=== PATIENT | male | born 1970 | race Caucasian/White ===

== ENCOUNTER 2016-04-15 07:46 | Emergency (ER) | payer OTHER ==
--- NOTE | 2016-04-15 10:10 | DIAGNOSTIC IMAGING REPORT ---
PROCEDURE: XR CHEST 2 VIEW INDICATION: PRE-SYNCOPE TECHNIQUE: PA and lateral views. COMPARISON: None. FINDINGS: Lungs are clear. Heart and mediastinum are normal. Thorax is normal. IMPRESSION: 1. Negative chest.
--- NOTE | 2016-04-15 12:07 | ED CLINICAL REPORT ---
Clinical Report - Physicians/Mid Levels [facility] [address] [place] [address] 04/15/2016 7:52 Patient: POOJA TEE Time Seen: 09:24 Apr 15 2016. Arrived- By private vehicle. Historian- patient. CPT: ER phys charges level 4 plus (#[id number]). EKG interpretation (#[id number]). HISTORY OF PRESENT ILLNESS Chief Complaint: Dizziness for several months but worse over the past month. ( patient indicates his had dizziness over the last several months. This occurs primarily when he stands up quickly. He notes over the last month though that was become worse and seems to happen every time he tries to eat. He has intermittent nausea but no pain. Has had no fever sweats chills vomiting or diarrhea. Has no history of diabetes, cardiac illness or pulmonary problems. He is not on any new medications. Does do intermittent recreational drugs. He had no PCP as he states he is homeless.). Modifying factors- worsened by food. Not relieved by anything. 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 No weight loss, headache, visual disturbance, fatigue or muscle aches. No weakness. Similar symptoms previously: None. Recent medical care: Not recently seen/assessed. REVIEW OF SYSTEMS No fever, sore throat, sinus drainage, nasal congestion or difficulty breathing. No chest pain, nausea, vomiting, chills or difficulty with urination. No skin rash, back pain, calf pain, headache or blackouts. No double vision. The patient has had a mild nonproductive cough (exposed to influenza A.). He has had mild abdominal pain. The pain is described as located in the epigastrium. All systems otherwise negative, except as recorded above. PAST HISTORY Heart disease. peptic ulcer disease for 20 years. This supposed to be on medications for life but has not been taking them. No history of lung disease, renal disease, hypertension or diabetes mellitus. SOCIAL HISTORY Heavy tobacco smoker (cigarette)- less than 1 pack per day. Occasional alcohol use. Patient is alcoholic. ADDITIONAL NOTES The nursing notes have been reviewed. PHYSICAL EXAM Vital Signs: 04/15/2016 08:02 BP: 132/75. HR: 91. RR: 12. O2 saturation: 99%. Temp: 97.9 F. Pain level now: 0/10. Appearance: Alert. No acute distress. Eyes: Pupils equal, round and reactive to light. Eyes normal inspection. ENT: Ears normal. Nose normal. Pharynx normal. Neck: Normal inspection. Neck supple. CVS: Normal heart rate and rhythm. Heart sounds normal. Pulses normal. No cardiac murmur. Respiratory: No respiratory distress. Breath sounds normal. Chest nontender. Abdomen: No visible injury. Soft. Mild tenderness in the epigastric area. No guarding. Bowel sounds normal. Back: Normal inspection. Skin: Skin warm. Normal skin color. No rash. Extremities: Extremities exhibit normal ROM. No lower extremity edema. Neuro: Oriented X 3. No motor deficit. No sensory deficit. Reflexes normal. LABS, X-RAYS, AND EKG EKG: Normal EKG. Chest X-ray: Normal Chest X-Ray. Laboratory Tests: UA-Culture if indicated: (MIKO: 04/15/2016 09:45) ( MsgRcvd 04/15/2016 10:18) Final results Test Result Flag Units (Reference) URINE COLOR YELLOW URINE APPEARANCE CLEAR URINE GLUCOSE NEGATIVE (NEGATIVE) URINE BILIRUBIN NEGATIVE (NEGATIVE) URINE KETONE NEGATIVE (NEGATIVE) URINE SPECIFIC GRAVITY 1.015 (1.010-1.030) URINE PH 6.5 (5.0-8.0) URINE PROTEIN 1+ (NEGATIVE) URINE UROBILINOGEN 0.2 EU/dL (0.2-1.0) URINE NITRITE NEGATIVE (NEGATIVE) URINE BLOOD NEGATIVE (NEGATIVE) URINE LEUK ESTERASE NEGATIVE (NEGATIVE) URINE RBC 0-1 rbc/hpf (0-1) URINE WBC 0-1 wbc/hpf (0-1) URINE EPITHELIAL CELLS NONE SEEN EPI/hpf (0-5) URINE BACTERIA NONE SEEN (NONE SEEN) URINE COMMENT CULT NOT INDICATED URINE CULTURES ARE SET-UP BASED ON THE FOLLOWING CRITERIA:POSITIVE NITRITEPOSITIVE LEUKOCYTE ESTERASEGREATER THAN 10 WHITE BLOOD CELLSMODERATE (2+) OR GREATER BACTERIA CBC w Diff: (MIKO: 04/15/2016 09:55) ( [facility] 04/15/2016 10:19) Final results Test Result Flag Units (Reference) WHITE BLOOD COUNT 7.4 K/uL (4.5-11.5) RED BLOOD COUNT 4.54 M/uL (4.50-5.90) HEMOGLOBIN 12.8 L gm/dL (13.5-17.5) HEMATOCRIT 39.3 L % (41.0-53.0) MEAN CELL VOLUME 87 fL (80-100) MEAN CORPUSCULAR HGB 28 pg (26-34) MEAN CORPUSCULAR HGB CONC 33 g/dL (31-37) RED CELL DISTRIBUTION WIDTH 14.2 % (11.6-14.8) PLATELET COUNT 400 K/uL (150-400) NEUTROPHIL % 62.8 % (50-75) LYMPH % 27.0 % (25-40) MONO % 7.4 % (3-14) EOSINOPHIL % 2.1 % (0-4) BASOPHIL % 0.7 % (0-2) Urine Drug Screen: (MIKO: 04/15/2016 09:45) ( MsgRcvd 04/15/2016 10:23) Final results Test Result Flag Units (Reference) AMPHETAMINE/METHAMPHETAMINE NEGATIVE (NEGATIVE) BARBITURATE NEGATIVE (NEGATIVE) BENZODIAZEPINE NEGATIVE (NEGATIVE) CANNABINOID NEGATIVE (NEGATIVE) COCAINE NEGATIVE (NEGATIVE) ECSTASY NEGATIVE (NEGATIVE) METHADONE NEGATIVE (NEGATIVE) OPIATE NEGATIVE (NEGATIVE) The urine drug screen is a qualitative screening test fordrug overdose and abuse. All screen results should beconsidered as presumptive.Drugs screened for are as follows:BenzodiazepinesCocaineAmphetamines/MetamphetaminesTHC (Tetrahydrocannabinol)OpiatesBarbituratesEcstasyMethadonePositive results are unconfirmed. For confirmation, notifythe lab for the specimen to be sent to the reference lab.All confirmations must be performed by a differentmethodology.The ingestion of natural herbal and plant productscontaining Ephedra/Ephedra metabolites can produce in urineone or more substances capable of cross reacting withamphetamine/methamphetamine immunoassays. These testsprovide a preliminary result only. A more specificalternative chemical method must be used to obtain aconfirmed analytical result. CHEM 13 PANEL: (MIKO: 04/15/2016 09:55) ( MsgRcvd 04/15/2016 10:56) Final results Test Result Flag Units (Reference) GLUCOSE 104 mg/dL (70-110) BUN 14 mg/dL (7-18) CREATININE 0.8 mg/dL (0.6-1.3) Estimated GFR >60 mL/min Estimated GFR- >60 mL/min Note: Persistent reduction over 3 months in eGFR<60 mL/min/1.73 m2 defines CKD. Patients with eGFR values>=60 mL/min/1.73 m2 may also have CKD if evidence ofpersistent proteinuria. Additional information may be foundat www.kidney.org. SODIUM 142 mmol/L (136-145) POTASSIUM 4.2 mmol/L (3.5-5.1) CHLORIDE 105 mmol/L (98-107) CARBON DIOXIDE 29 mmol/L (21-32) CALCIUM 8.8 mg/dL (8.5-10.1) TOTAL PROTEIN 6.9 g/dL (6.4-8.2) ALBUMIN 3.4 g/dL (3.3-5.0) BILIRUBIN, TOTAL 0.2 mg/dL (0.0-1.0) ALKALINE PHOSPHATASE 58 U/L (46-116) AST (SGOT) 17 U/L (15-37) ALT (SGPT) 19 U/L (12-78) MAGNESIUM 1.9 mg/dL (1.8-2.4) LIPASE 286 U/L (73-393) AMYLASE 90 U/L (25-115) CPK 151 U/L (24-260) TROPONIN I <0.05 ng/mL (0.00-1.5) TROPONIN REFERENCE RANGE:<0.1 NEGATIVE0.1-1.5 INDETERMINANT>1.5 POSITIVE Rapid Influenza Screen: (MIKO: 04/15/2016 08:08) ( ScgRcvd 04/15/2016 09:09) Final results SPECIMEN DESCRIPTION: LENS COATING TECHNICIAN Test Result Flag Units (Reference) RAPID INFLUENZA SCREEN DATE: 04/15/16 INFLUENZA A: NEGATIVE SCREEN FOR INFLUENZA A INFLUENZA B: NEGATIVE SCREEN FOR INFLUENZA B . PROGRESS AND PROCEDURES Course of Care: Hiral Was able to eat in the ER with no symptoms. No symptoms in ER. patient is not orthostatic. No apparent emergent condition identified today. He may have GI induced symptoms and notes he has a history of peptic ulcer disease in the past. He has not been taking the medications that were prescribed for this problem. He says this is in part due to the fact he does not have a PCP. He will be given [facility] for follow-up and start a trial of GI meds. Patient/family counseled. Disposition: Discharged. Condition: stable. CLINICAL IMPRESSION Chronic Dizziness of unclear etiology Mild gastritis. INSTRUCTIONS Avoid alcohol and NSAIDS. Examples of NSAIDS include aspirin, ibuprofen (Advil) and naproxen (Aleve). Avoid spicy foods. Other diet: caffeine. Do not smoke. No alcohol. Warnings: Further evaluation is necessary. GENERAL WARNINGS: Return or contact your physician immediately if your condition worsens or changes unexpectedly, if not improving as expected, or if other problems arise. Prescription Medications: Carafate 1 g before meals and at bedtime. #40 Prilosec 40 mg daily at bedtime #10. Understanding of the discharge instructions verbalized by patient. Discharge instructions reviewed with and understanding was verbalized by cardiac rehabilitation program director. Follow-up with: [facility], , , [address], , [place], [id number] Follow up in one week. Call for an appointment. (Electronically signed by Sergo Downs MD 04/19/2016 8:33)
--- NOTE | 2016-04-15 12:07 | ED CLINICAL REPORT ---
Clinical Report - Physicians/Mid Levels [facility] [address] [place] [address] 04/15/2016 7:52 Patient: POOJA TEE Time Seen: 09:24 Apr 15 2016. Arrived- By private vehicle. Historian- patient. CPT: ER phys charges level 4 plus (#[id number]). EKG interpretation (#[id number]). HISTORY OF PRESENT ILLNESS Chief Complaint: Dizziness for several months but worse over the past month. ( patient indicates his had dizziness over the last several months. This occurs primarily when he stands up quickly. He notes over the last month though that was become worse and seems to happen every time he tries to eat. He has intermittent nausea but no pain. Has had no fever sweats chills vomiting or diarrhea. Has no history of diabetes, cardiac illness or pulmonary problems. He is not on any new medications. Does do intermittent recreational drugs. He had no PCP as he states he is homeless.). Modifying factors- worsened by food. Not relieved by anything. 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 No weight loss, headache, visual disturbance, fatigue or muscle aches. No weakness. Similar symptoms previously: None. Recent medical care: Not recently seen/assessed. REVIEW OF SYSTEMS No fever, sore throat, sinus drainage, nasal congestion or difficulty breathing. No chest pain, nausea, vomiting, chills or difficulty with urination. No skin rash, back pain, calf pain, headache or blackouts. No double vision. The patient has had a mild nonproductive cough (exposed to influenza A.). He has had mild abdominal pain. The pain is described as located in the epigastrium. All systems otherwise negative, except as recorded above. PAST HISTORY Heart disease. peptic ulcer disease for 20 years. This supposed to be on medications for life but has not been taking them. No history of lung disease, renal disease, hypertension or diabetes mellitus. SOCIAL HISTORY Heavy tobacco smoker (cigarette)- less than 1 pack per day. Occasional alcohol use. Patient is alcoholic. ADDITIONAL NOTES The nursing notes have been reviewed. PHYSICAL EXAM Vital Signs: 04/15/2016 08:02 BP: 132/75. HR: 91. RR: 12. O2 saturation: 99%. Temp: 97.9 F. Pain level now: 0/10. Appearance: Alert. No acute distress. Eyes: Pupils equal, round and reactive to light. Eyes normal inspection. ENT: Ears normal. Nose normal. Pharynx normal. Neck: Normal inspection. Neck supple. CVS: Normal heart rate and rhythm. Heart sounds normal. Pulses normal. No cardiac murmur. Respiratory: No respiratory distress. Breath sounds normal. Chest nontender. Abdomen: No visible injury. Soft. Mild tenderness in the epigastric area. No guarding. Bowel sounds normal. Back: Normal inspection. Skin: Skin warm. Normal skin color. No rash. Extremities: Extremities exhibit normal ROM. No lower extremity edema. Neuro: Oriented X 3. No motor deficit. No sensory deficit. Reflexes normal. LABS, X-RAYS, AND EKG EKG: Normal EKG. Chest X-ray: Normal Chest X-Ray. Laboratory Tests: UA-Culture if indicated: (MIKO: 04/15/2016 09:45) ( MsgRcvd 04/15/2016 10:18) Final results Test Result Flag Units (Reference) URINE COLOR YELLOW URINE APPEARANCE CLEAR URINE GLUCOSE NEGATIVE (NEGATIVE) URINE BILIRUBIN NEGATIVE (NEGATIVE) URINE KETONE NEGATIVE (NEGATIVE) URINE SPECIFIC GRAVITY 1.015 (1.010-1.030) URINE PH 6.5 (5.0-8.0) URINE PROTEIN 1+ (NEGATIVE) URINE UROBILINOGEN 0.2 EU/dL (0.2-1.0) URINE NITRITE NEGATIVE (NEGATIVE) URINE BLOOD NEGATIVE (NEGATIVE) URINE LEUK ESTERASE NEGATIVE (NEGATIVE) URINE RBC 0-1 rbc/hpf (0-1) URINE WBC 0-1 wbc/hpf (0-1) URINE EPITHELIAL CELLS NONE SEEN EPI/hpf (0-5) URINE BACTERIA NONE SEEN (NONE SEEN) URINE COMMENT CULT NOT INDICATED URINE CULTURES ARE SET-UP BASED ON THE FOLLOWING CRITERIA:POSITIVE NITRITEPOSITIVE LEUKOCYTE ESTERASEGREATER THAN 10 WHITE BLOOD CELLSMODERATE (2+) OR GREATER BACTERIA CBC w Diff: (MIKO: 04/15/2016 09:55) ( [facility] 04/15/2016 10:19) Final results Test Result Flag Units (Reference) WHITE BLOOD COUNT 7.4 K/uL (4.5-11.5) RED BLOOD COUNT 4.54 M/uL (4.50-5.90) HEMOGLOBIN 12.8 L gm/dL (13.5-17.5) HEMATOCRIT 39.3 L % (41.0-53.0) MEAN CELL VOLUME 87 fL (80-100) MEAN CORPUSCULAR HGB 28 pg (26-34) MEAN CORPUSCULAR HGB CONC 33 g/dL (31-37) RED CELL DISTRIBUTION WIDTH 14.2 % (11.6-14.8) PLATELET COUNT 400 K/uL (150-400) NEUTROPHIL % 62.8 % (50-75) LYMPH % 27.0 % (25-40) MONO % 7.4 % (3-14) EOSINOPHIL % 2.1 % (0-4) BASOPHIL % 0.7 % (0-2) Urine Drug Screen: (MIKO: 04/15/2016 09:45) ( MsgRcvd 04/15/2016 10:23) Final results Test Result Flag Units (Reference) AMPHETAMINE/METHAMPHETAMINE NEGATIVE (NEGATIVE) BARBITURATE NEGATIVE (NEGATIVE) BENZODIAZEPINE NEGATIVE (NEGATIVE) CANNABINOID NEGATIVE (NEGATIVE) COCAINE NEGATIVE (NEGATIVE) ECSTASY NEGATIVE (NEGATIVE) METHADONE NEGATIVE (NEGATIVE) OPIATE NEGATIVE (NEGATIVE) The urine drug screen is a qualitative screening test fordrug overdose and abuse. All screen results should beconsidered as presumptive.Drugs screened for are as follows:BenzodiazepinesCocaineAmphetamines/MetamphetaminesTHC (Tetrahydrocannabinol)OpiatesBarbituratesEcstasyMethadonePositive results are unconfirmed. For confirmation, notifythe lab for the specimen to be sent to the reference lab.All confirmations must be performed by a differentmethodology.The ingestion of natural herbal and plant productscontaining Ephedra/Ephedra metabolites can produce in urineone or more substances capable of cross reacting withamphetamine/methamphetamine immunoassays. These testsprovide a preliminary result only. A more specificalternative chemical method must be used to obtain aconfirmed analytical result. CHEM 13 PANEL: (MIKO: 04/15/2016 09:55) ( MsgRcvd 04/15/2016 10:56) Final results Test Result Flag Units (Reference) GLUCOSE 104 mg/dL (70-110) BUN 14 mg/dL (7-18) CREATININE 0.8 mg/dL (0.6-1.3) Estimated GFR >60 mL/min Estimated GFR- >60 mL/min Note: Persistent reduction over 3 months in eGFR<60 mL/min/1.73 m2 defines CKD. Patients with eGFR values>=60 mL/min/1.73 m2 may also have CKD if evidence ofpersistent proteinuria. Additional information may be foundat www.kidney.org. SODIUM 142 mmol/L (136-145) POTASSIUM 4.2 mmol/L (3.5-5.1) CHLORIDE 105 mmol/L (98-107) CARBON DIOXIDE 29 mmol/L (21-32) CALCIUM 8.8 mg/dL (8.5-10.1) TOTAL PROTEIN 6.9 g/dL (6.4-8.2) ALBUMIN 3.4 g/dL (3.3-5.0) BILIRUBIN, TOTAL 0.2 mg/dL (0.0-1.0) ALKALINE PHOSPHATASE 58 U/L (46-116) AST (SGOT) 17 U/L (15-37) ALT (SGPT) 19 U/L (12-78) MAGNESIUM 1.9 mg/dL (1.8-2.4) LIPASE 286 U/L (73-393) AMYLASE 90 U/L (25-115) CPK 151 U/L (24-260) TROPONIN I <0.05 ng/mL (0.00-1.5) TROPONIN REFERENCE RANGE:<0.1 NEGATIVE0.1-1.5 INDETERMINANT>1.5 POSITIVE Rapid Influenza Screen: (MIKO: 04/15/2016 08:08) ( MdgRcvd 04/15/2016 09:09) Final results SPECIMEN DESCRIPTION: HELP DESK ASSOCIATE Test Result Flag Units (Reference) RAPID INFLUENZA SCREEN DATE: 04/15/16 INFLUENZA A: NEGATIVE SCREEN FOR INFLUENZA A INFLUENZA B: NEGATIVE SCREEN FOR INFLUENZA B . PROGRESS AND PROCEDURES Course of Care: Hiral Was able to eat in the ER with no symptoms. No symptoms in ER. patient is not orthostatic. No apparent emergent condition identified today. He may have GI induced symptoms and notes he has a history of peptic ulcer disease in the past. He has not been taking the medications that were prescribed for this problem. He says this is in part due to the fact he does not have a PCP. He will be given [facility] for follow-up and start a trial of GI meds. Patient/family counseled. Disposition: Discharged. Condition: stable. CLINICAL IMPRESSION Chronic Dizziness of unclear etiology Mild gastritis. INSTRUCTIONS Avoid alcohol and NSAIDS. Examples of NSAIDS include aspirin, ibuprofen (Advil) and naproxen (Aleve). Avoid spicy foods. Other diet: caffeine. Do not smoke. No alcohol. Warnings: Further evaluation is necessary. GENERAL WARNINGS: Return or contact your physician immediately if your condition worsens or changes unexpectedly, if not improving as expected, or if other problems arise. Prescription Medications: Carafate 1 g before meals and at bedtime. #40 Prilosec 40 mg daily at bedtime #10. Understanding of the discharge instructions verbalized by patient. Discharge instructions reviewed with and understanding was verbalized by client success director. Follow-up with: [facility], , , [address], , [place], [id number] Follow up in one week. Call for an appointment. (Electronically signed by Sergo Downs MD 04/19/2016 8:33)
--- NOTE | 2016-04-15 12:08 | ED NURSING NOTES ---
Clinical Report - Nurses [facility] [address] [place] [address] 04/15/2016 7:52 Patient: POOJA TEE TRIAGE Triage time 08:02. Acuity: LEVEL 4. Chief Complaint: FATIGUE. 08:02 04/15/16. 08:02 04/15/16. --08:08 Edvin Geronimo R.N. 08:02 04/15/16. BP: 132/75. HR: 91. RR: 12. O2 saturation: 99% on room air. Temp: 97.9 F (oral). Pain level now: 0/10. --08:08 Edvin Geronimo R.N. Acuity: LEVEL 3. --10:33 Edvin Geronimo R.N. Weight: 72.5 kg stated. Height/Length: 67 inches Per Patient. BMI: 25.1. --08:03 Edvin Geronimo R.N. Medications None. --08:02 Edvin Geronimo R.N. Medication/allergy information source: the patient. --08:08 Edvin Geronimo R.N. Allergies Tylenol.(rash) --08:03 Edvin Geronimo R.N. PCN.(rash) --08:03 Edvin Geronimo R.N. History Arrived by private vehicle. Historian: patient. Accompanied by friend. 08:02 04/15/16. Onset. ("a couple months"). Treatment MOBILE HOME SET UP PERSON: None. SOCIAL HX: Current every day light tobacco smoker (cigarette)- less than 1/2 a pack per day. Occasional alcohol use; consumes beer. History of drug use: methamphetamines, marijuana. (5 days ago). He has not traveled outside the [place] The patient was exposed to influenza. Mask placed on patient. ABUSE ASSESSMENT: No report of abuse. FALL RISK ASSESSMENT: Fall risk assessment completed. No fall risk identified. NUTRITIONAL RISK ASSESSMENT: The nutritional risk assessment revealed no deficiencies. FUNCTIONAL ASSESSMENT: Functional assessment: no impairments noted. LEARNING NEEDS ASSESSMENT: The learning needs assessment revealed no barriers. SKIN INTEGRITY ASSESSMENT: Skin integrity risk assessment completed. No skin integrity risk identified. --08:08 Edvin Geronimo R.N. PAST MEDICAL HX: Immunization status is known. --08:08 Edvin Geronimo R.N. PROBLEMS: Bipolar Disorder. --08:04 Edvin Geronimo R.N. Depression. Anxiety Reaction. --08:04 Edvin Geronimo R.N. ADDITIONAL SURGERIES: Left Leg. Right Arm . --08:04 Edvin Geronimo R.N. Assessment 08:02 04/15/16. --08:08 Edvin Geronimo R.N. Interventions 08:02 04/15/16. 08:02 04/15/16. ID and allergy band on patient. To treatment room. --08:08 Edvin Geronimo R.N. PHYSICAL ASSESSMENT 08:06 04/15/16. Ambulatory to room. GENERAL / NEURO / PSYCH: Alert. Oriented X 4. RESPIRATORY: Respirations not labored. CVS: Capillary refill less than 2 seconds. SKIN: Skin is warm and dry. --08:06 Edvin Geronimo R.N. NURSING PROGRESS NOTES 08:06 04/15/16. The plan of care for this patient has been created. Patient gowned. Head of bed elevated. Two patient identifiers checked. Call light placed in reach. Side rails up x 2. Bed placed in lowest position. Brakes of bed on. Brakes of chair on. --08:06 Edvin Geronimo R.N. 08:06 04/15/16. Patient ready for evaluation- chart flagged and notification provided. --08:06 Edvin Geronimo R.N. 08:11 04/15/16. ( Flu swab sent to lab, nasal). --08:11 Edvin Geronimo R.N. 09:10 04/15/16. Patient and family informed about reason for wait and about plan of care. --09:10 Edvin Geronimo R.N. 09:12 04/15/16. --09:12 Edvin Geronimo R.N. 09:11 04/15/16. BP: 128/72. HR: 82. RR: 12. O2 saturation: 99% on room air. --09:12 Edvin Geronimo R.N. 09:54 04/15/2016 Site #1 started via IV in the left antecubital space with an 20g angiocath, with aseptic technique and good blood return; one attempt. Blood drawn: rainbow set. Labeled in the presence of the patient and sent to the lab. Saline lock flushed with 10 mL saline. --09:54 Edvin Geronimo R.N. 09:55 04/15/16. EKG time: (0955 AM). EKG was ordered, performed by a nurse and shown to the ED physician. --09:55 Edvin Geronimo R.N. 09:55 04/15/16. --09:55 Edvin Geroniom R.N. 09:55 04/15/16. BP: 123/71 taken while lying. HR: 90. RR: 12. O2 saturation: 100% on room air. --09:55 Edvin Geronimo R.N. 09:56 04/15/16. Cardiac rhythm: normal sinus rhythm. --09:56 Edvin Geronimo R.N. 09:55 04/15/16. BP: 119/70 taken while sitting. HR: 92. RR: 14. O2 saturation: 100% on room air. --09:56 Edvin Geronimo R.N. 09:56 04/15/16. Cardiac rhythm: normal sinus rhythm. --09:56 Edvin Gernoimo R.N. 09:56 04/15/16. BP: 120/79. HR: 93. RR: 14. O2 saturation: 100% on room air. --09:56 Edvin Geronimo R.N. 09:56 04/15/16. lunchroom monitor, pulse oximeter and NIBP monitor placed on patient; monitor alarms on. --09:56 Edvin Geronimo R.N. 09:56 04/15/16. Cardiac rhythm: normal sinus rhythm. --09:56 Edvin Geronimo R.N. 09:57 04/15/16. Patient ID band checked for patient name and birthdate: patient confirmed. Clean catch urine collected with return of yellow-colored urine; sample sent to lab for urinalysis and drug screen. Specimen labeled in the presence of the patient. --09:57 Edvin Geronimo R.N. 10:33 04/15/16. Cardiac rhythm: normal sinus rhythm. --10:33 Edvin Geronimo R.N. 10:33 04/15/16. BP: 124/74. HR: 90. RR: 16. O2 saturation: 99% on room air. --10:33 Edvin Geronimo R.N. 12:00 04/15/16. Cardiac rhythm: normal sinus rhythm. --12:00 Edvin Geronimo R.N. 11:59 04/15/16. BP: 119/63. HR: 91. RR: 14. O2 saturation: 100% on room air. --12:00 Edvin Geronimo R.N. DISPOSITION / DISCHARGE 12:03 04/15/2016 Site #1 removed upon discharge. Catheter intact. --12:13 Edvin Geronimo R.N. 12:14 04/15/16. Cardiac rhythm: normal sinus rhythm. Condition at departure: improved. The goals identified in the patient's plan of care were met. No learning barriers present. Discharge instructions provided and reviewed with the patient. Reviewed warnings. Reviewed medication(s). Treatments reviewed. Patient verbalized understanding. Written instructions provided in [place]. The patient was discharged by the physician. He was discharged home and accompanied by family. He left the Emergency Department ambulatory and via private vehicle. Family member driving. FALL RISK ASSESSMENT: Fall risk assessment completed. No fall risk identified. --12:14 Edvin Geronimo R.N. 12:13 04/15/16. BP: 114/72. HR: 88. RR: 12. O2 saturation: 99% on room air. Temp: 98.2 F (oral). --12:14 Edvin Geronimo R.N. 12:14 04/15/16. Departure time: 12:14. --12:14 Edvin Geronimo R.N. Locked/Released at 04/15/2016 12:16 by Edvin Geronimo R.N.
--- NOTE | 2016-04-15 12:08 | ED ORDER SUMMARY ---
..... Patient: POOJA TEE OrderSheet [facility] VisitID: [id number] [place] [address] 45y, M Registration Date/Time: 04/15/2016 ORDER SHEET Weight: 72.5 kg (stated) Allergies: Tylenol, PCN GENERAL ORDERS: Rapid Influenza Screen (Nasal Pharyngeal) (NOTE KEEPER) Urgent (08:07 04/15/2016 Callum FLORES) (8:11 JBoardley R.N.) Chest 2V Urgent (09:04/15/2016 Alia FLORES) (9:57 JBoardley R.N.) Criminology Professor (Continuous) (:04/15/2016 Alia FLORES) (9:54 JBoardley R.N.) - (Orthostatic BP/P) (09:39 04/15/2016 Alia FLORES) (9:54 JBoardley R.N.) UA-Culture if indicated Urgent (09:39 04/15/2016 Alia FLORES) (9:54 JBoardley R.N.) Cardiac Panel Stat (09:04/15/2016 Alia FLORES) (9:54 JBoardley R.N.) Amylase Urgent (09:39 04/15/2016 Alia FLORES) (9:54 JBoardley R.N.) Lipase Urgent (09:04/15/2016 Alia FLORES) (9:54 JBoardley R.N.) Urine Drug Screen Urgent (09:39 04/15/2016 Alia FLORES) (9:54 JBwillarddleradha R.N.) EKG - ER Stat (09:04/15/2016 Alia FLORES) (9:54 JBoarnicolas R.N.) Pulse oximeter (09:04/15/2016 Alia FLORES) (9:54 JBoardleradha R.N.) MEDICATION ORDERS: IV FLUIDS: IV Saline Lock (09:04/15/2016 Alia FLORES) (Ack 9:40 JBoardley R.N.) (9:55 JBoardley R.N.) ORDER SHEET NOTES: [Electronically signed by Edvin Geronimo R.N. (12:16 04/15/2016)] [Electronically signed by Sergo Downs MD (08:33 04/19/2016)] [Electronically locked/signed by Edvin Geronimo R.N. (12:16 04/15/2016)]
--- NOTE | 2016-04-15 12:08 | ED NURSING NOTES ---
Clinical Report - Nurses [facility] [address] [place] [address] 04/15/2016 7:52 Patient: POOJA TEE TRIAGE Triage time 08:02. Acuity: LEVEL 4. Chief Complaint: FATIGUE. 08:02 04/15/16. 08:02 04/15/16. --08:08 Edvin Geronimo R.N. 08:02 04/15/16. BP: 132/75. HR: 91. RR: 12. O2 saturation: 99% on room air. Temp: 97.9 F (oral). Pain level now: 0/10. --08:08 Edvin Geronimo R.N. Acuity: LEVEL 3. --10:33 Edvin Geronimo R.N. Weight: 72.5 kg stated. Height/Length: 67 inches Per Patient. BMI: 25.1. --08:03 Edvin Geronimo R.N. Medications None. --08:02 Edvin Geronimo R.N. Medication/allergy information source: the patient. --08:08 Edvin Geronimo R.N. Allergies Tylenol.(rash) --08:03 Edvin Geronimo R.N. PCN.(rash) --08:03 Edvin Geronimo R.N. History Arrived by private vehicle. Historian: patient. Accompanied by friend. 08:02 04/15/16. Onset. ("a couple months"). Treatment TECHNOLOGY SOLUTIONS ARCHITECT: None. SOCIAL HX: Current every day light tobacco smoker (cigarette)- less than 1/2 a pack per day. Occasional alcohol use; consumes beer. History of drug use: methamphetamines, marijuana. (5 days ago). He has not traveled outside the [place] The patient was exposed to influenza. Mask placed on patient. ABUSE ASSESSMENT: No report of abuse. FALL RISK ASSESSMENT: Fall risk assessment completed. No fall risk identified. NUTRITIONAL RISK ASSESSMENT: The nutritional risk assessment revealed no deficiencies. FUNCTIONAL ASSESSMENT: Functional assessment: no impairments noted. LEARNING NEEDS ASSESSMENT: The learning needs assessment revealed no barriers. SKIN INTEGRITY ASSESSMENT: Skin integrity risk assessment completed. No skin integrity risk identified. --08:08 Edvin Geronimo R.N. PAST MEDICAL HX: Immunization status is known. --08:08 Edvin Geronimo R.N. PROBLEMS: Bipolar Disorder. --08:04 Edvin Geronimo R.N. Depression. Anxiety Reaction. --08:04 Edvin Geronimo R.N. ADDITIONAL SURGERIES: Left Leg. Right Arm . --08:04 Edvin Geronimo R.N. Assessment 08:02 04/15/16. --08:08 Edvin Geronimo R.N. Interventions 08:02 04/15/16. 08:02 04/15/16. ID and allergy band on patient. To treatment room. --08:08 Edvin Geronimo R.N. PHYSICAL ASSESSMENT 08:06 04/15/16. Ambulatory to room. GENERAL / NEURO / PSYCH: Alert. Oriented X 4. RESPIRATORY: Respirations not labored. CVS: Capillary refill less than 2 seconds. SKIN: Skin is warm and dry. --08:06 Edvin Geronimo R.N. NURSING PROGRESS NOTES 08:06 04/15/16. The plan of care for this patient has been created. Patient gowned. Head of bed elevated. Two patient identifiers checked. Call light placed in reach. Side rails up x 2. Bed placed in lowest position. Brakes of bed on. Brakes of chair on. --08:06 Edvin Geronimo R.N. 08:06 04/15/16. Patient ready for evaluation- chart flagged and notification provided. --08:06 Edvin Geronimo R.N. 08:11 04/15/16. ( Flu swab sent to lab, nasal). --08:11 Edvin Geronimo R.N. 09:10 04/15/16. Patient and family informed about reason for wait and about plan of care. --09:10 Edvin Geronimo R.N. 09:12 04/15/16. --09:12 Edvin Geronimo R.N. 09:11 04/15/16. BP: 128/72. HR: 82. RR: 12. O2 saturation: 99% on room air. --09:12 Edvin Geronimo R.N. 09:54 04/15/2016 Site #1 started via IV in the left antecubital space with an 20g angiocath, with aseptic technique and good blood return; one attempt. Blood drawn: rainbow set. Labeled in the presence of the patient and sent to the lab. Saline lock flushed with 10 mL saline. --09:54 Edvin Geronimo R.N. 09:55 04/15/16. EKG time: (0955 AM). EKG was ordered, performed by a nurse and shown to the ED physician. --09:55 Edvin Geronimo R.N. 09:55 04/15/16. --09:55 Edvin Geronimo R.N. 09:55 04/15/16. BP: 123/71 taken while lying. HR: 90. RR: 12. O2 saturation: 100% on room air. --09:55 Edvin Geronimo R.N. 09:56 04/15/16. Cardiac rhythm: normal sinus rhythm. --09:56 Edvin Geronimo R.N. 09:55 04/15/16. BP: 119/70 taken while sitting. HR: 92. RR: 14. O2 saturation: 100% on room air. --09:56 Edvin Geronimo R.N. 09:56 04/15/16. Cardiac rhythm: normal sinus rhythm. --09:56 Edvin Geronimo R.N. 09:56 04/15/16. BP: 120/79. HR: 93. RR: 14. O2 saturation: 100% on room air. --09:56 Edvin Geronimo R.N. 09:56 04/15/16. telemetry monitor, pulse oximeter and NIBP monitor placed on patient; monitor alarms on. --09:56 Edvin Geronimo R.N. 09:56 04/15/16. Cardiac rhythm: normal sinus rhythm. --09:56 Edvin Geronimo R.N. 09:57 04/15/16. Patient ID band checked for patient name and birthdate: patient confirmed. Clean catch urine collected with return of yellow-colored urine; sample sent to lab for urinalysis and drug screen. Specimen labeled in the presence of the patient. --09:57 Edvin Geronimo R.N. 10:33 04/15/16. Cardiac rhythm: normal sinus rhythm. --10:33 Edvin Geronimo R.N. 10:33 04/15/16. BP: 124/74. HR: 90. RR: 16. O2 saturation: 99% on room air. --10:33 Edvin Geronimo R.N. 12:00 04/15/16. Cardiac rhythm: normal sinus rhythm. --12:00 Edvin Geronimo R.N. 11:59 04/15/16. BP: 119/63. HR: 91. RR: 14. O2 saturation: 100% on room air. --12:00 Edvin Geronimo R.N. DISPOSITION / DISCHARGE 12:03 04/15/2016 Site #1 removed upon discharge. Catheter intact. --12:13 Edvin Geronimo R.N. 12:14 04/15/16. Cardiac rhythm: normal sinus rhythm. Condition at departure: improved. The goals identified in the patient's plan of care were met. No learning barriers present. Discharge instructions provided and reviewed with the patient. Reviewed warnings. Reviewed medication(s). Treatments reviewed. Patient verbalized understanding. Written instructions provided in Fijian. The patient was discharged by the physician. He was discharged home and accompanied by family. He left the Emergency Department ambulatory and via private vehicle. Family member driving. FALL RISK ASSESSMENT: Fall risk assessment completed. No fall risk identified. --12:14 Edvin Geronimo R.N. 12:13 04/15/16. BP: 114/72. HR: 88. RR: 12. O2 saturation: 99% on room air. Temp: 98.2 F (oral). --12:14 Edvin Geronimo R.N. 12:14 04/15/16. Departure time: 12:14. --12:14 Edvin Geronimo R.N. Locked/Released at 04/15/2016 12:16 by Edvin Geronimo R.N.
--- NOTE | 2016-04-15 12:08 | ED ORDER SUMMARY ---
..... Patient: POOJA TEE OrderSheet [facility] VisitID: [id number] [place] [address] 45y, M Registration Date/Time: 04/15/2016 ORDER SHEET Weight: 72.5 kg (stated) Allergies: Tylenol, PCN GENERAL ORDERS: Rapid Influenza Screen (Nasal Pharyngeal) (BID CLERK) Urgent (08:07 04/15/2016 Callum FLORES) (8:11 JBoardley R.N.) Chest 2V Urgent (09:04/15/2016 Alia FLORES) (9:57 JBoardley R.N.) Station Mechanic (Continuous) (:04/15/2016 Alia FLORES) (9:54 JBoardley R.N.) - (Orthostatic BP/P) (09:39 04/15/2016 Alia FLORES) (9:54 JBoardley R.N.) UA-Culture if indicated Urgent (09:39 04/15/2016 Alia FLORES) (9:54 JBoardley R.N.) Cardiac Panel Stat (09:04/15/2016 Alia FLORES) (9:54 JBoardley R.N.) Amylase Urgent (09:39 04/15/2016 Alia FLORES) (9:54 JBoardley R.N.) Lipase Urgent (09:04/15/2016 Alia FLORES) (9:54 JBoardley R.N.) Urine Drug Screen Urgent (09:39 04/15/2016 Alia FLORES) (9:54 JBwillarddleradha R.N.) EKG - ER Stat (09:04/15/2016 Alia FLORES) (9:54 JBoarnicolas R.N.) Pulse oximeter (09:04/15/2016 Alia FLORES) (9:54 JBoardleradha R.N.) MEDICATION ORDERS: IV FLUIDS: IV Saline Lock (09:04/15/2016 Alia FLORES) (Ack 9:40 JBoardley R.N.) (9:55 JBoardley R.N.) ORDER SHEET NOTES: [Electronically signed by Edvin Geronimo R.N. (12:16 04/15/2016)] [Electronically signed by Sergo Downs MD (08:33 04/19/2016)] [Electronically locked/signed by Edvin Geronimo R.N. (12:16 04/15/2016)]
--- NOTE | 2016-04-19 08:33 | ED MAR SUMMARY ---
..... Medication Administration Record [facility] [address] [place] [id number] Patient: POOJA TEE Visit ID: [id number] 45y, M Weight: 72.5 kg Height/Length: 67 in BMI: 25.1 ALLERGIES: PCN, Tylenol
--- NOTE | 2016-04-19 08:33 | ED MED RECONCILIATION SUMMARY ---
Patient: POOJA TEE Medication Reconciliation Report [facility] VisitID: [id number] [address] [place] [address] 45y, M Registration Date/Time: 04/15/2016 Weight: 72.5 kg Height/Length: 67 in. BMI: 25.1 ALLERGIES: PCN, Tylenol The patient's Home Medications are listed below: NONE. The source(s) of the original Home Medication information: patient The following Medications were given to the patient in the Emergency Department: None. The following Medications were prescribed to the patient: Carafate 1 g before meals and at bedtime. #40Prilosec 40 mg daily at bedtime #10. -- Sergo Downs MD
--- NOTE | 2016-04-19 08:33 | ED DISCHARGE INSTRUCTIONS ---
Patient: POOJA TEE General Instructions [facility] VisitID: [id number] [address] [place] [address] 45y, M Registration Date/Time: 04/15/2016 Chronic Dizziness of unclear etiology Mild gastritis. INSTRUCTIONS Avoid alcohol and NSAIDS. Examples of NSAIDS include aspirin, ibuprofen (Advil) and naproxen (Aleve). Avoid spicy foods. Other diet: caffeine. Do not smoke. No alcohol. Warnings: Further evaluation is necessary. GENERAL WARNINGS: Return or contact your physician immediately if your condition worsens or changes unexpectedly, if not improving as expected, or if other problems arise. Prescription Medications: Carafate 1 g before meals and at bedtime. #40 Prilosec 40 mg daily at bedtime #10. Understanding of the discharge instructions verbalized by patient. Discharge instructions reviewed with and understanding was verbalized by skid road man. Follow-up with: [facility], , , [address], , [place], [id number] Follow up in one week. Call for an appointment. ADDITIONAL INFORMATION [place] Diet A bland diet is used for patients with an upset stomach. It consists of foods that are mild and easy to digest. It is better to eat small frequent meals rather than three large meals a day. BEVERAGES OK: Fruit juices, non-caffeinated teas and coffee, non-carbonated grayson AVOID: Carbonated beverage, caffeinated tea and coffee, all alcoholic beverages BREAD OK: Refined white, wheat or rye bread, thalia or soda crackers, Krystal toast, plain rolls, bagels AVOID: Whole-grain bread CEREAL OK: Refined cereals: cooked or ready to eat AVOID: Whole grain cereals and granola, or those containing bran, seeds or nuts DESSERTS OK: Peanut butter and all others except those to "avoid" AVOID: Chocolate, cocoa, coconut, popcorn, nuts, seeds, jam, marmalade FRUITS OK: Canned, cooked, frozen or fresh fruits without seeds or tough skin AVOID: Olives, skin and seeds of fruit MEATS OK: All fresh or preserved meat, fish and fowl AVOID: Any that are prepared with those spices to "avoid" CHEESE & EGGS OK: Eggs, cottage cheese, cream cheese, other cheeses AVOID: All cheeses made with those spices to "avoid" POTATOES & PASTA OK: Potato, rice, macaroni, noodles, spaghetti AVOID: None SOUPS OK: All soups without heavy seasoning AVOID: Soups made with those spices to "avoid" VEGETABLES OK: Canned, cooked, fresh or frozen mildly flavored vegetables without seeds, skins or coarse fiber AVOID: Vegetables prepared with those spices to "avoid"; skin and seeds of vegetables and those with coarse fiber SPICES OK: Salt, lemon and ewiiaapaayp juice, vinegar, all extracts, ana m, cinnamon, thyme, mace, allspice, paprika AVOID: [place] powder, cloves, pepper, seed spices, garlic, gravy pickles, highly seasoned salad dressings You have been given the following additional information: Liborio Gonzalez (Adult) (Electronically signed by Sergo Downs MD 04/19/2016 8:33)
--- NOTE | 2016-04-19 08:33 | ED MAR SUMMARY ---
..... Medication Administration Record [facility] [address] [place], [place] [id number] Patient: POOJA TEE Visit ID: [id number] 45y, M Weight: 72.5 kg Height/Length: 67 in BMI: 25.1 ALLERGIES: PCN, Tylenol
--- NOTE | 2016-04-19 08:33 | ED MED RECONCILIATION SUMMARY ---
Patient: POOJA TEE Medication Reconciliation Report [facility] VisitID: [id number] [address] [place] [address] 45y, M Registration Date/Time: 04/15/2016 Weight: 72.5 kg Height/Length: 67 in. BMI: 25.1 ALLERGIES: PCN, Tylenol The patient's Home Medications are listed below: NONE. The source(s) of the original Home Medication information: patient The following Medications were given to the patient in the Emergency Department: None. The following Medications were prescribed to the patient: Carafate 1 g before meals and at bedtime. #40Prilosec 40 mg daily at bedtime #10. -- Sergo Downs MD
--- NOTE | 2016-04-19 08:33 | ED DISCHARGE INSTRUCTIONS ---
Patient: POOJA TEE General Instructions [facility] VisitID: [id number] [address] [place] [address] 45y, M Registration Date/Time: 04/15/2016 Chronic Dizziness of unclear etiology Mild gastritis. INSTRUCTIONS Avoid alcohol and NSAIDS. Examples of NSAIDS include aspirin, ibuprofen (Advil) and naproxen (Aleve). Avoid spicy foods. Other diet: caffeine. Do not smoke. No alcohol. Warnings: Further evaluation is necessary. GENERAL WARNINGS: Return or contact your physician immediately if your condition worsens or changes unexpectedly, if not improving as expected, or if other problems arise. Prescription Medications: Carafate 1 g before meals and at bedtime. #40 Prilosec 40 mg daily at bedtime #10. Understanding of the discharge instructions verbalized by patient. Discharge instructions reviewed with and understanding was verbalized by skid man. Follow-up with: [facility], , , [address], , [place], [id number] Follow up in one week. Call for an appointment. ADDITIONAL INFORMATION [place] Diet A bland diet is used for patients with an upset stomach. It consists of foods that are mild and easy to digest. It is better to eat small frequent meals rather than three large meals a day. BEVERAGES OK: Fruit juices, non-caffeinated teas and coffee, non-carbonated grayson AVOID: Carbonated beverage, caffeinated tea and coffee, all alcoholic beverages BREAD OK: Refined white, wheat or rye bread, thalia or soda crackers, Krystal toast, plain rolls, bagels AVOID: Whole-grain bread CEREAL OK: Refined cereals: cooked or ready to eat AVOID: Whole grain cereals and granola, or those containing bran, seeds or nuts DESSERTS OK: Peanut butter and all others except those to "avoid" AVOID: Chocolate, cocoa, coconut, popcorn, nuts, seeds, jam, marmalade FRUITS OK: Canned, cooked, frozen or fresh fruits without seeds or tough skin AVOID: Olives, skin and seeds of fruit MEATS OK: All fresh or preserved meat, fish and fowl AVOID: Any that are prepared with those spices to "avoid" CHEESE & EGGS OK: Eggs, cottage cheese, cream cheese, other cheeses AVOID: All cheeses made with those spices to "avoid" POTATOES & PASTA OK: Potato, rice, macaroni, noodles, spaghetti AVOID: None SOUPS OK: All soups without heavy seasoning AVOID: Soups made with those spices to "avoid" VEGETABLES OK: Canned, cooked, fresh or frozen mildly flavored vegetables without seeds, skins or coarse fiber AVOID: Vegetables prepared with those spices to "avoid"; skin and seeds of vegetables and those with coarse fiber SPICES OK: Salt, lemon and chickaloon juice, vinegar, all extracts, ana m, cinnamon, thyme, mace, allspice, paprika AVOID: [place] powder, cloves, pepper, seed spices, garlic, gravy pickles, highly seasoned salad dressings You have been given the following additional information: Liborio Gonzalez (Adult) (Electronically signed by Sergo Downs MD 04/19/2016 8:33)
== END 2016-04-15 12:14 | disposition home or self-care (01) ==
LOC: ED SRH 07:46
DX: R42 Dizziness and giddiness (principal); K29.70 Gastritis, unspecified, without bleeding; I51.9 Heart disease, unspecified; K27.9 Peptic ulcer, site unspecified, unspecified as acute or chronic, without hemorrhage or perforation; F17.210 Nicotine dependence, cigarettes, uncomplicated
CPT/HCPCS: 90004; 90100; 90616; 91400; 92235; 92530; 92610; 92720; 92760; 92761; 92762; 92763; 92764; 92765; 92766; 92767; 95059